=== PATIENT | male | born 1950 | race Caucasian/White ===

== ENCOUNTER 2022-07-17 12:25 | Emergency (ER) | payer OTHER ==
[~2022-07-17] VITALS: Ht 177.8 cm; Wt 59.0 kg
[2022-07-17] MEDS ORDERED: SODIUM CHLORIDE 0.9% 1,000 ML IV ONE (12:45)
[2022-07-17] MEDS ORDERED: PANTOPRAZOLE 40 MG/10 ML VIAL INJ IV ONE (12:45)
[2022-07-17 13:11] LABS: Basophils # (auto) 0 10 ^3/uL (0-0.2); Eosinophils # (auto) 0.2 10 ^3/uL (0-0.8); Monocytes # (auto) 0.8 10 ^3/uL (0-1.3)
[2022-07-17 13:13] LABS: Urine WBC None Seen /hpf (0 - 3)
[2022-07-17 13:13] LABS: Basophils % (auto) 0.5 % (0.0-2.0); Eosinophils % (auto) 1.7 % (0.0-7.0); Hematocrit 23.3 % (41.0-53.0); Hemoglobin 7.7 g/dL (13.5-17.5); Lymphocytes % (auto) 9.8 % (10.0-50.0); Mean Corpuscular Hemoglobin 32.2 pg (28.0-32.0); Mean Corpuscular Hgb Conc. 33.1 g/dL (32.0-36.0); Monocytes % (auto) 7.6 % (0.0-12.0); Neutrophils # (auto) 8.3 10 ^3/uL (1.6-8.6); Neutrophils % (auto) 80.4 % (37.0-80.0); White Blood Cell 10.3 10^3/uL (4.4-10.8)
[2022-07-17 13:36] LABS: Albumin 2.7 g/dL (3.4-5.0); Calcium 8.1 mg/dL (8.5-10.1); Magnesium 2.3 mg/dL (1.6-2.6); Potassium 4.1 mmol/L (3.5-5.1)
[2022-07-17 13:37] LABS: Urine Bacteria NONE SEEN /hpf (None Seen); Urine Blood Negative /uL (Negative); Urine Specific Gravity 1.004 (1.001-1.035)
[2022-07-17 13:39] LABS: BUN/Creatinine Ratio 11.2; Bilirubin, Total 0.4 mg/dL (0.2-1.0); Total Protein 5.3 g/dL (6.4-8.2)
[2022-07-17] MEDS ORDERED: IOHEXOL 300 MG/ML 100ML BOTTLE IJ ONE (13:52)
[2022-07-17] MEDS ORDERED: ONDANSETRON HCL 4 MG/2 ML VIAL IV ONE (14:00)
[2022-07-17] MEDS ORDERED: metroNIDAZOLE 500 MG TAB PO ONE (16:00)
[2022-07-17] MEDS ORDERED: levoFLOXacin 500 MG TAB PO ONE (16:00)
[2022-07-17 17:00] VITALS: BP 128/65
[2022-07-19] MEDS ORDERED: LEVO500T31 PO (07:58)
[2022-07-19] MEDS ORDERED: METR500T PO (07:58)
== END 2022-07-17 17:55 | disposition home or self-care (01) ==
LOC: EDBD 12:25 → ER 12:30
DX: K92.1 Melena (principal); K92.2 Gastrointestinal hemorrhage, unspecified; D64.9 Anemia, unspecified; K52.9 Noninfective gastroenteritis and colitis, unspecified; I10 Essential (primary) hypertension; E78.5 Hyperlipidemia, unspecified; J44.9 Chronic obstructive pulmonary disease, unspecified; Z86.73 Personal history of transient ischemic attack (TIA), and cerebral infarction without residual deficits; Z20.822 Contact with and (suspected) exposure to COVID-19
CPT/HCPCS: 36415; 74177; 80053; 81001; 83605; 83690; 83735; 84484; 85025; 86850; 86900; 86901; 87040; 87426; 93005; 96361; 96374; 99285; C9113; J7030; Q9967